=== PATIENT | male | born 1985 | race Caucasian/White ===

== ENCOUNTER → 2022-06-05 15:41 | Outpatient (BNVA) | payer MEDICAID, SELFPAY | PROVIDERS: PCP Internal Medicine; Visit Provider Nurse Practitioner Psychiatric/Mental Health | DX: Z51.81 Encounter for therapeutic drug level monitoring (principal); F11.20 Opioid dependence, uncomplicated | CPT/HCPCS: 80305; 99212 ==

== ENCOUNTER 2022-06-13 15:55 | Outpatient (REF) | payer MEDICAID, SELFPAY ==
[2022-06-13 17:05] LABS: Albumin Level 4.4 g/dL (3.5-5.0); Bilirubin Direct 0.2 mg/dL (0.0-0.5); Bilirubin Total 0.4 mg/dL (0.0-1.0); Total Protein 7.3 g/dL (6.5-8.0)
[2022-06-13 17:24] LABS: Alanine Aminotransferase 127 U/L (0-40); Alkaline Phosphatase 56 U/L (39-117); Aspartate Amino Transferase 61 U/L (5-37)
[2022-06-14 04:08] LABS: HBS Num1 1.16 mIU/mL (0-7.99); HBc Num1 0.17 S/CO (0.00-0.79); HBsAGNum1 0.15 S/CO (0.00-0.99); Hepatitis A Antibody IgM 0.15 Index (0-0.79); Hepatitis B Core Antibody Nonreactive (Nonreactive); Hepatitis B Surface Antigen Negative (Negative); ~HepC Num1 14.17 S/CO (0.00-0.79); ~Hepatitis A Antibody IgM Nonreactive (Nonreactive); ~Hepatitis B Surface Antibody NONREACTIVE (Nonreactive); ~Hepatitis C Antibody Reactive (Nonreactive)
== END 2022-06-13 15:56 | disposition home or self-care (01) ==
LOC: HO.LAB 15:55
PROVIDERS: PCP Internal Medicine; Visit Provider Nurse Practitioner Psychiatric/Mental Health
DX: F11.20 Opioid dependence, uncomplicated (principal); Z51.81 Encounter for therapeutic drug level monitoring; Z79.899 Other long term (current) drug therapy
CPT/HCPCS: 36415; 80076; 80305; 86704; 86706; 86709; 86803; 87340; 99212

== ENCOUNTER → 2022-06-20 16:13 | Outpatient (BNVA) | payer MEDICAID, SELFPAY | PROVIDERS: PCP Internal Medicine; Visit Provider Nurse Practitioner Psychiatric/Mental Health | DX: F11.20 Opioid dependence, uncomplicated (principal); Z51.81 Encounter for therapeutic drug level monitoring; Z79.899 Other long term (current) drug therapy | CPT/HCPCS: 80305; 99212 ==

== ENCOUNTER 2022-07-04 15:55 | Outpatient (REF) | payer MEDICAID, SELFPAY ==
[2022-07-04 16:26] LABS: MANUAL DIFF FLAG NO
[2022-07-04 16:47] LABS: Basophils Absolute Auto 0.1 X10*3/uL (0.0-0.2); Basophils Percent Auto 0.8 % (0-2); Eosinophils Absolute Auto 0.2 X10*3/uL (0.0-0.4); Hematocrit 45.5 % (42.0-52.0); Hemoglobin 15.4 g/dl (14.0-18.0); Imm Gran Abs Auto 0.03 X10*3/uL (0.00-0.03); Imm Gran Pct Auto 0.4 % (0.0-0.4); Lymphocytes Absolute Auto 2.1 X10*3/uL (1.2-4.9); Lymphocytes Percent Auto 26.5 % (20-40); Mean Corpuscular HGB Conc 33.8 g/dl (31.0-36.0); Mean Corpuscular Hemoglobin 30.9 pg (27.0-33.0); Mean Corpuscular Volume 91.4 fL (80.0-98.0); Mean Platelet Volume 9.6 fL (9.4-12.4); Monocytes Absolute Auto 0.6 X10*3/uL (0.1-1.2); Monocytes Percent Auto 8.1 % (2-11); Neutrophils Absolute Auto 4.9 x10*3/uL (2.0-8.3); Neutrophils Percent Auto 61.2 % (45-73); Platelet Count 170 X10*3/uL (160-400); Red Blood Count 4.98 X10*6/uL (4.60-5.80); Red Cell Distribution Width 13.5 % (11.0-16.0); White Blood Count 7.9 X10*3/uL (4.8-10.8)
[2022-07-04 18:00] LABS: Alanine Aminotransferase 89 U/L (0-40); Albumin Level 4.3 g/dL (3.5-5.0); Alkaline Phosphatase 50 U/L (39-117); Anion Gap 14 (12-20); Aspartate Amino Transferase 55 U/L (5-37); Bilirubin Direct 0.3 mg/dL (0.0-0.5); Bilirubin Total 0.5 mg/dL (0.0-1.0); Blood Urea Nitrogen 12 mg/dL (9-16); Calcium 9.2 mg/dL (8.4-10.2); Carbon Dioxide 25 mmol/L (22-29); Chloride 102 mmol/L (96-108); Estimated Glomerular Filt Rate > 60; Glucose Random 72 mg/dL (60-115); Potassium 4.1 mmol/L (3.3-5.1); Sodium 137 mmol/L (135-145); Total Protein 6.9 g/dL (6.5-8.0)
[2022-07-08 20:07] LABS: HCV Log PCR 7.02 Log IU/mL (NOT DETECTED)
== END 2022-07-04 15:56 | disposition home or self-care (01) ==
LOC: HO.LAB 15:55
PROVIDERS: PCP Internal Medicine; Visit Provider Nurse Practitioner Psychiatric/Mental Health
DX: F11.20 Opioid dependence, uncomplicated (principal); Z51.81 Encounter for therapeutic drug level monitoring; Z79.899 Other long term (current) drug therapy
CPT/HCPCS: 36415; 80048; 80076; 80305; 85025; 87522; 99212

== ENCOUNTER → 2022-07-31 15:47 | Outpatient (BNVA) | payer MEDICAID, SELFPAY | PROVIDERS: PCP Internal Medicine; Visit Provider Nurse Practitioner Psychiatric/Mental Health | DX: Z51.81 Encounter for therapeutic drug level monitoring (principal); F11.20 Opioid dependence, uncomplicated | CPT/HCPCS: 80305; 99212 ==

== ENCOUNTER → 2022-08-28 14:50 | Outpatient (BNVA) | payer MEDICAID, SELFPAY | PROVIDERS: PCP Internal Medicine; Visit Provider Nurse Practitioner Psychiatric/Mental Health | DX: F11.20 Opioid dependence, uncomplicated (principal) | CPT/HCPCS: 80305; 99212 ==

== ENCOUNTER → 2022-10-03 15:27 | Outpatient (BNVA) | payer MEDICAID, SELFPAY | PROVIDERS: PCP Internal Medicine; Visit Provider Nurse Practitioner Psychiatric/Mental Health | DX: F11.20 Opioid dependence, uncomplicated (principal) | CPT/HCPCS: 99212 ==

== ENCOUNTER → 2022-10-30 16:15 | Outpatient (BNVA) | payer MEDICAID, SELFPAY | PROVIDERS: PCP Internal Medicine; Visit Provider Nurse Practitioner Psychiatric/Mental Health | DX: F11.20 Opioid dependence, uncomplicated (principal) | CPT/HCPCS: 80305; 99212 ==

== ENCOUNTER → 2022-12-25 15:43 | Outpatient (BNVA) | payer OTHER, SELFPAY | PROVIDERS: PCP Internal Medicine; Visit Provider Nurse Practitioner Psychiatric/Mental Health | DX: F11.20 Opioid dependence, uncomplicated (principal); Z51.81 Encounter for therapeutic drug level monitoring; Z79.899 Other long term (current) drug therapy | CPT/HCPCS: 80305; 99212 ==

== ENCOUNTER → 2023-01-21 15:33 | Outpatient (BNVA) | payer OTHER, SELFPAY | PROVIDERS: PCP Internal Medicine; Visit Provider Nurse Practitioner Psychiatric/Mental Health | DX: Z51.81 Encounter for therapeutic drug level monitoring (principal); F11.20 Opioid dependence, uncomplicated | CPT/HCPCS: 80305; 96372; 99212 ==

== ENCOUNTER → 2023-02-18 15:19 | Outpatient (BNVA) | payer MEDICAID, SELFPAY | PROVIDERS: PCP Internal Medicine; Visit Provider Nurse Practitioner Psychiatric/Mental Health | DX: Z51.81 Encounter for therapeutic drug level monitoring (principal); F11.20 Opioid dependence, uncomplicated | CPT/HCPCS: 80305; 96372; 99212 ==

== ENCOUNTER 2023-04-17 16:13 | Outpatient (AMB) | payer MEDICAID, SELFPAY ==
--- NOTE | 2023-04-17 16:15 | A.OFFVIS_ITS ---
Intake Vital Signs 04/17/23 16:22 BP 108/70 Blood Pressure Location Lt radial Position Sitting Pulse 84 Pulse Source Pulse Oximeter Pulse Oximetry (%) 95 Oxygen Delivery Method Room Air Intake Visit Reasons: MAT Visit Intake Note: the patient presents for a mat visit Service Now Developer Required: No Allergies No Known Allergies Allergy (Verified 04/17/23 16:16) Do you need a note to return to daycare/school/sports/work: No HPI MAT Visit HPI Details Patient presents for BETY treatment follow up Currently taking Suboxone 8mg daily Had been out of care for some time--reports he did not have any withdrawal sx for some time after last injection, then had several extra suboxone at home Does not want to resume with injection at this time Review of Systems Const Reports as per HPI and Reports no additional complaints Physical Exam Vital Signs: Last Vital Signs Pulse 84 04/17/23 16:22 BP 108/70 04/17/23 16:22 Pulse Ox 95 04/17/23 16:22 Oxygen Delivery Method Room Air 04/17/23 16:22 Const General: cooperative, comfortable, no acute distress, well developed and alert Nutritional Appearance: well nourished Orientation/consciousness: patient oriented x3 Limitations: no limitations Neuro General: patient oriented x3 Psych Appearance: grossly normal Mental Status: mental status grossly normal Speech and movement: Normal speech and movement present Affect: normal affect Attitude: cooperative Thought process: Normal thought process present Thought content: Normal thought content present Insight: Good insight present (Psych) Judgement: Good judgement present (Psych) Results AMB 14 Panel Urine Drug Screen Urine Marijuana (THC) Positive Last Edit by Lili Bailey CMA on 04/17/23 16:24 Urine Cocaine Negative Last Edit by Lili Bailey CMA on 04/17/23 16:24 Urine Morphine Negative Last Edit by Lili Bailey CMA on 04/17/23 16:24 Urine Methamphetamine Negative Last Edit by Lili Bailey CMA on 04/17/23 16:24 Urine Amphetamine Positive Last Edit by Lili Bailey CMA on 04/17/23 16:2 4 Urine Benzodiazepine Negative Last Edit by Lili Bailey CMA on 04/17/23 16:24 Urine Barbiturates Negative Last Edit by Lili Bailey CMA on 04/17/23 16: 24 Urine Methadone Negative Last Edit by Lili Bailey CMA on 04/17/23 16:24 Urine Buprenorphine Positive Last Edit by Lili Bailey CMA on 04/17/23 16 :24 Urine Tricyclic Antidepressant Negative Last Edit by Lili Bailey CMA on 04/17/23 16:24 Urine MDMA Positive Last Edit by Lili Bailey CMA on 04/17/23 16:24 Urine Oxycodone Negative Last Edit by Lili Bailey CMA on 04/17/23 16:24 Urine Phencyclidine Negative Last Edit by Lili Bailey CMA on 04/17/23 16 :24 Urine Propoxyphene Negative Last Edit by Lili Bailey CMA on 04/17/23 16: 24 Results Reviewed Results Reviewed: Laboratory Last Values POC Urine Buprenorphine Positive 04/17/23 16:16 POC Urine Morphine Negative 04/17/23 16:16 POC Urine Oxycodone Negative 04/17/23 16:16 POC Urine Methadone Negative 04/17/23 16:16 POC Urine Propoxyphene Negative 04/17/23 16:16 POC Urine Barbiturates Negative 04/17/23 16:16 POC U Tricyclic Antidpr Negative 04/17/23 16:16 POC Urine PCP Negative 04/17/23 16:16 POC Ur Amphetamines Positive 04/17/23 16:16 POC Ur Methamphetamine Negative 04/17/23 16:16 POC Urine MDMA Positive 04/17/23 16:16 POC Ur Benzodiazepine Negative 04/17/23 16:16 POC Urine Cocaine Negative 04/17/23 16:16 POC Ur Marijuana (THC) Positive 04/17/23 16:16 Assessment & Plan Assessment & Plan (1) Opioid use disorder, severe, dependence: Code(s): F11.20 - Opioid dependence, uncomplicated Plan: * continue suboxone 8mg QD * follow up 8 weeks * encouraged to call office should he need to be seen sooner Orders: Orders AMB 14 Panel Urine Drug Screen 04/17/23 Z51.81 - Encounter for therapeutic drug level monitoring Medications: Changed From buprenorphine-naloxone 8-2 mg (Suboxone) 2 film sublingual DAILY 6 ea 0RF To buprenorphine-naloxone 8-2 mg (Suboxone) 1 film sublingual DAILY 30 ea 1RF Coding Level of Care Code Est Pt Level 3 (91532) Diagnoses Opioid use disorder, severe, dependence F11.20
[2023-04-17 16:22] VITALS: BP 108/70; PULSE 84; O2SAT 95
== END 2023-04-17 16:47 | disposition home or self-care (01) ==
LOC: HO.HCC 16:13
PROVIDERS: PCP Internal Medicine; Visit Provider Nurse Practitioner Psychiatric/Mental Health
DX: F11.20 Opioid dependence, uncomplicated (principal)
CPT/HCPCS: 99213

== ENCOUNTER → 2023-04-17 16:13 | Outpatient (BNVA) | payer MEDICAID, SELFPAY | PROVIDERS: PCP Internal Medicine; Visit Provider Nurse Practitioner Psychiatric/Mental Health | DX: F11.20 Opioid dependence, uncomplicated (principal) | CPT/HCPCS: 80305; 99213 ==

== ENCOUNTER 2023-06-12 14:30 | Outpatient (AMB) | payer MEDICAID, SELFPAY ==
--- NOTE | 2023-06-12 14:31 | MHC.OFFVIS ---
Intake Vital Signs 06/12/23 14:35 BP 110/78 Blood Pressure Location Lt radial Position Sitting Pulse 67 Pulse Source Pulse Oximeter Pulse Oximetry (%) 94 Oxygen Delivery Method Room Air Intake Visit Reasons: mat visit Intake Note: the patient presents for a mat visit Customer Experience Specialist Required: No Allergies No Known Allergies Allergy (Verified 06/12/23 14:36) Do you need a note to return to daycare/school/sports/work: No HPI mat visit HPI Details Pt presents for OUD treatment follow up Currently being prescribed Suboxone 8mg daily Denies any side effects related to medication Still working fulltime Review of Systems Const Reports as per HPI Physical Exam Vital Signs: Last Vital Signs Pulse 67 06/12/23 14:35 BP 110/78 06/12/23 14:35 Pulse Ox 94 06/12/23 14:35 Oxygen Delivery Method Room Air 06/12/23 14:35 Const General: cooperative, comfortable, no acute distress, well developed and alert Nutritional Appearance: well nourished Orientation/consciousness: patient oriented x3 Limitations: no limitations Neuro General: patient oriented x3 Psych Appearance: grossly normal Mental Status: mental status grossly normal Speech and movement: Normal speech and movement present Affect: normal affect Attitude: cooperative Thought process: Normal thought process present Thought content: Normal thought content present Insight: Good insight present (Psych) Judgement: Good judgement present (Psych) Assessment & Plan Assessment & Plan (1) Opioid use disorder, severe, dependence: Code(s): F11.20 - Opioid dependence, uncomplicated Plan: continue suboxone 8mg QD follow up 8 weeks encouraged to call office should he need to be seen sooner Medications: Refilled buprenorphine-naloxone 8-2 mg (Suboxone) 1 film sublingual DAILY 30 ea 1RF Coding Level of Care Code Est Pt Level 3 (94175) Diagnoses Opioid use disorder, severe, dependence F11.20
[2023-06-12 14:35] VITALS: BP 110/78; PULSE 67; O2SAT 94
== END 2023-06-12 14:53 | disposition home or self-care (01) ==
PROVIDERS: PCP Internal Medicine; Visit Provider Nurse Practitioner Psychiatric/Mental Health
DX: F11.20 Opioid dependence, uncomplicated (principal)
CPT/HCPCS: 99213

== ENCOUNTER → 2023-06-12 14:30 | Outpatient (BNVA) | payer MEDICAID, SELFPAY | PROVIDERS: PCP Internal Medicine; Visit Provider Nurse Practitioner Psychiatric/Mental Health | DX: F11.20 Opioid dependence, uncomplicated (principal) | CPT/HCPCS: 99212 ==

== ENCOUNTER 2023-08-07 14:31 | Outpatient (AMB) | payer MEDICAID, SELFPAY ==
--- NOTE | 2023-08-07 14:38 | A.OFFVIS_ITS ---
Intake Intake Visit Reasons: mat visit Allergies No Known Allergies Allergy (Verified 06/12/23 14:36) HPI mat visit HPI Details Patient presents for follow up Currently prescribed Suboxone 8mg QD Will be starting soon Working FT. Review of Systems Const Reports as per HPI and Reports no additional complaints Physical Exam Const General: cooperative, comfortable, no acute distress, well developed and alert Nutritional Appearance: well nourished Orientation/consciousness: patient oriented x3 Limitations: no limitations Neuro General: patient oriented x3 Psych Appearance: grossly normal Mental Status: mental status grossly normal Speech and movement: Normal speech and movement present Affect: normal affect Attitude: cooperative Thought process: Normal thought process present Thought content: Normal thought content present Insight: Good insight present (Psych) Judgement: Good judgement present (Psych) Assessment & Plan Assessment & Plan (1) Opioid use disorder, severe, dependence: Code(s): F11.20 - Opioid dependence, uncomplicated Plan: * continue suboxone 8mg QD * follow up 8 weeks * encouraged to call office should he need to be seen sooner Medications: Refilled buprenorphine-naloxone 8-2 mg (Suboxone) 1 film sublingual DAILY 30 ea 1RF Coding Level of Care Code Est Pt Level 3 (57580) Diagnoses Opioid use disorder, severe, dependence F11.20
== END 2023-08-07 16:20 | disposition home or self-care (01) ==
PROVIDERS: PCP Internal Medicine; Visit Provider Nurse Practitioner Psychiatric/Mental Health
DX: F11.20 Opioid dependence, uncomplicated (principal)
CPT/HCPCS: 99213

== ENCOUNTER → 2023-08-07 14:31 | Outpatient (BNVA) | payer MEDICAID, SELFPAY | PROVIDERS: PCP Internal Medicine; Visit Provider Nurse Practitioner Psychiatric/Mental Health | DX: F11.20 Opioid dependence, uncomplicated (principal) | CPT/HCPCS: 99212 ==

== ENCOUNTER 2023-10-09 14:19 | Outpatient (AMB) | payer MEDICAID, SELFPAY ==
--- NOTE | 2023-10-09 14:59 | A.OFFVISCC_ITS ---
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 [facility] Medical History (Updated 10/09/23 @ 15:04 by Amber Perez CNP) Opioid use disorder, severe, dependence Review of Systems Const Reports as per HPI Physical Exam Const General: cooperative, comfortable, no acute distress, well developed and alert Nutritional Appearance: well nourished Orientation/consciousness: patient oriented x3 Limitations: no limitations Neuro General: patient oriented x3 Psych Appearance: grossly normal Mental Status: mental status grossly normal Speech and movement: Normal speech and movement present Affect: normal affect Attitude: cooperative Thought process: Normal thought process present Thought content: Normal thought content present Insight: Good insight present (Psych) Judgement: Good judgement present (Psych) Assessment & Plan Assessment & Plan (1) Opioid use disorder, severe, in sustained remission: Code(s): F11.21 - Opioid dependence, in remission Plan: * continue suboxone at current dose * follow up 2 months * encouraged to call office should he need anything before then Medications: Refilled buprenorphine-naloxone 8-2 mg (Suboxone) 1 film sublingual DAILY 30 ea 1RF Coding Level of Care Code Est Pt Level 3 (17926) Diagnoses Opioid use disorder, severe, in sustained remission F11.21
== END 2023-10-09 14:54 | disposition home or self-care (01) ==
PROVIDERS: PCP Internal Medicine; Visit Provider Nurse Practitioner Psychiatric/Mental Health
DX: F11.21 Opioid dependence, in remission (principal)
CPT/HCPCS: 99213

== ENCOUNTER → 2023-10-09 14:19 | Outpatient (BNVA) | payer MEDICAID, SELFPAY | PROVIDERS: PCP Internal Medicine; Visit Provider Nurse Practitioner Psychiatric/Mental Health | DX: F11.20 Opioid dependence, uncomplicated (principal) | CPT/HCPCS: 99212 ==

== ENCOUNTER 2023-12-04 14:38 | Outpatient (AMB) | payer MEDICAID, SELFPAY ==
--- NOTE | 2023-12-04 14:39 | A.OFFVISCC_ITS ---
Intake Vital Signs 12/04/23 14:46 BP 116/74 Blood Pressure Location Lt radial Position Sitting Pulse 83 Pulse Source Pulse Oximeter Pulse Oximetry (%) 96 Oxygen Delivery Method Room Air Intake Visit Reasons: mat visit Intake Note: The patient presents for a mat visit Senior Environmental Technician Required: No Allergies No Known Allergies Allergy (Verified 12/04/23 14:39) Do you need a note to return to daycare/school/sports/work: No HPI mat visit HPI Details Patient presents for follow up Currently prescribed Suboxone 8mg QD No issues related to recovery Patient reporting that he is planning to move to [place] later this year He and his are visiting in January and plan to look for places to live Discussed continuation of treatment--patient expressed wanting to d/c suboxone. Discussed Brixadi as an option [facility] Medical History (Updated 12/04/23 @ 14:44 by Amber Perez CNP) Opioid use disorder, severe, dependence Review of Systems Const Reports as per HPI and Reports no additional complaints Physical Exam Vital Signs: Last Vital Signs Pulse 83 12/04/23 14:46 BP 116/74 12/04/23 14:46 Pulse Ox 96 12/04/23 14:46 Oxygen Delivery Method Room Air 12/04/23 14:46 Const General: cooperative, comfortable, no acute distress, well developed and alert Nutritional Appearance: well nourished Orientation/consciousness: patient oriented x3 Limitations: no limitations Neuro General: patient oriented x3 Psych Appearance: grossly normal Mental Status: mental status grossly normal Speech and movement: Normal speech and movement present Affect: normal affect Attitude: cooperative Thought process: Normal thought process present Thought content: Normal thought content present Insight: Good insight present (Psych) Judgement: Good judgement present (Psych) Assessment & Plan Assessment & Plan (1) Opioid use disorder, severe, in sustained remission: Code(s): F11.21 - Opioid dependence, in remission Plan: * continue suboxone at current dose * follow up 3 months * encouraged to call office should he need anything before then Orders: Orders Liver Panel 1 Month Z79.899 - Other [facility] (current) drug therapy Coding Level of Care Code Est Pt Level 3 (13778) Diagnoses Opioid use disorder, severe, in sustained remission F11.21
[2023-12-04 14:46] VITALS: BP 116/74; PULSE 83; O2SAT 96
== END 2023-12-04 15:14 | disposition home or self-care (01) ==
PROVIDERS: PCP Internal Medicine; Visit Provider Nurse Practitioner Psychiatric/Mental Health
DX: F11.21 Opioid dependence, in remission (principal)
CPT/HCPCS: 99213

== ENCOUNTER → 2023-12-04 14:38 | Outpatient (BNVA) | payer MEDICAID, SELFPAY | PROVIDERS: PCP Internal Medicine; Visit Provider Nurse Practitioner Psychiatric/Mental Health | DX: F11.21 Opioid dependence, in remission (principal) | CPT/HCPCS: 99212 ==

== ENCOUNTER 2024-02-25 14:07 | Outpatient (AMB) | payer MEDICAID, SELFPAY ==
--- NOTE | 2024-02-26 13:35 | MHC.AM.SUB ---
Intake Visit Reasons: mat visit Allergies No Known Allergies Allergy (Verified 12/04/23 14:39) HPI HPI mat visit: Details: Patient seen in follow up Currently prescribed Suboxone 8mg QD Denies any side effects Patient sharing that he will be moving to [place] by April Discussed transitioning care to provider in that area, he has not looked into this yet. Encouraged patient to do so soon so continuation of treatment is not an issue once he moves there Verbalized understanding. [facility] Medical History (Updated 12/04/23 @ 14:44 by Amber Perez CNP) Opioid use disorder, severe, dependence Review of Systems Const Reports as per HPI and Reports no additional complaints Physical Exam Const General: cooperative, comfortable, no acute distress, well developed and alert Nutritional Appearance: well nourished Orientation/consciousness: patient oriented x3 Limitations: no limitations Neuro General: patient oriented x3 Psych Appearance: grossly normal Mental Status: mental status grossly normal Speech and movement: Normal speech and movement present Affect: normal affect Attitude: cooperative Thought process: Normal thought process present Thought content: Normal thought content present Insight: Good insight present (Psych) Judgement: Good judgement present (Psych) Assessment & Plan Assessment & Plan (1) Opioid use disorder, severe, in sustained remission: Code(s): F11.21 - Opioid dependence, in remission Category: Medical Plan: continue suboxone at current dose refills due at start of March--will send then follow up 6 weeks
== END 2024-02-25 14:32 | disposition home or self-care (01) ==
PROVIDERS: PCP Internal Medicine; Visit Provider Nurse Practitioner Psychiatric/Mental Health
DX: F11.21 Opioid dependence, in remission (principal)
CPT/HCPCS: 99213

== ENCOUNTER → 2024-02-25 14:07 | Outpatient (BNVA) | payer MEDICAID, SELFPAY | PROVIDERS: PCP Internal Medicine; Visit Provider Nurse Practitioner Psychiatric/Mental Health | DX: F11.21 Opioid dependence, in remission (principal); Z79.899 Other long term (current) drug therapy | CPT/HCPCS: 99212 ==

== ENCOUNTER 2024-04-21 14:14 | Outpatient (AMB) | payer MEDICAID, SELFPAY ==
--- NOTE | 2024-04-21 14:21 | A.OFFVISCC_ITS ---
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 denies any issues with medication denies any issues related to recovery [facility] Medical History (Updated 12/04/23 @ 14:44 by Amber Perez CNP) Opioid use disorder, severe, dependence Review of Systems Const Reports as per HPI and Reports no additional complaints Physical Exam Const General: cooperative, healthy appearing and well groomed Nutritional Appearance: average body habitus Orientation/consciousness: patient oriented x3 Limitations: no limitations Neuro General: patient oriented x3 Psych Appearance: grossly normal Speech and movement: Normal speech and movement present Affect: normal affect Attitude: cooperative Thought process: Normal thought process present Thought content: Normal thought content present Insight: Good insight present (Psych) Judgement: Good judgement present (Psych) Assessment & Plan Assessment & Plan (1) Opioid use disorder, severe, in sustained remission: Code(s): F11.21 - Opioid dependence, in remission Category: Medical Plan: * continue suboxone at current dose * follow up in August * refill not yet due
== END 2024-04-21 14:37 | disposition home or self-care (01) ==
PROVIDERS: PCP Internal Medicine; Visit Provider Nurse Practitioner Psychiatric/Mental Health
DX: F11.21 Opioid dependence, in remission (principal)
CPT/HCPCS: 99213

== ENCOUNTER → 2024-04-21 14:14 | Outpatient (BNVA) | payer MEDICAID, SELFPAY | PROVIDERS: PCP Internal Medicine; Visit Provider Nurse Practitioner Psychiatric/Mental Health | DX: F11.20 Opioid dependence, uncomplicated (principal) | CPT/HCPCS: 99212 ==

== ENCOUNTER 2024-08-25 14:54 | Outpatient (AMB) | payer OTHER, SELFPAY ==
--- NOTE | 2024-08-25 15:00 | A.OFFVISCC_ITS ---
Intake Visit Reasons: mat visit Allergies No Known Allergies Allergy (Verified 12/04/23 14:39) HPI HPI mat visit: Details: Patient presents for follow up Still going [employer] Working in both spaces Not sure yet when he is moving there permanently Will be staying here until the Spring Positive outlook and attitude Tolerating current dose --no issues related to recovery Saw his PCP a couple weeks ago labs completed WNL--happy to hear that Hep C was successfully treated Working on cutting down on cigarettes Review of Systems Const Reports as per HPI and Reports no additional complaints Physical Exam Const General: cooperative, healthy appearing and well groomed Nutritional Appearance: average body habitus Orientation/consciousness: patient oriented x3 Limitations: no limitations Neuro General: patient oriented x3 Psych Appearance: grossly normal Speech and movement: Normal speech and movement present Affect: normal affect Attitude: cooperative Thought process: Normal thought process present Thought content: Normal thought content present Insight: Good insight present (Psych) Judgement: Good judgement present (Psych) Assessment & Plan Assessment & Plan (1) Opioid use disorder, severe, in sustained remission: Code(s): F11.21 - Opioid dependence, in remission Category: Medical Plan: * continue suboxone at current dose * follow up 3 months [facility] Medical History (Updated 12/04/23 @ 14:44 by Amber Perez CNP) Opioid use disorder, severe, dependence
== END 2024-08-25 15:12 | disposition home or self-care (01) ==
PROVIDERS: PCP Physician Assistant Surgical; Visit Provider Nurse Practitioner Psychiatric/Mental Health
DX: F11.21 Opioid dependence, in remission (principal)
CPT/HCPCS: 99213

== ENCOUNTER → 2024-08-25 14:54 | Outpatient (BNVA) | payer OTHER, SELFPAY | PROVIDERS: PCP Physician Assistant Surgical; Visit Provider Nurse Practitioner Psychiatric/Mental Health | DX: F11.21 Opioid dependence, in remission (principal) | CPT/HCPCS: 99212 ==

== ENCOUNTER 2024-11-24 09:33 | Outpatient (AMB) | payer OTHER, SELFPAY ==
--- NOTE | 2024-11-24 09:43 | MHC.AM.SUB ---
Intake Visit Reasons: MAT Office Allergies No Known Allergies Allergy (Verified 12/04/23 14:39) HPI HPI MAT Office: Details: Patient presents for follow up Currently prescribed Suboxone 8mg daily tolerating current dose no issues with sleep or appetite has decided not to relocate to [place]. Will be staying in this area Review of Systems Const Reports as per HPI and Reports no additional complaints Physical Exam Const General: cooperative, healthy appearing and well groomed Nutritional Appearance: average body habitus Orientation/consciousness: patient oriented x3 Limitations: no limitations Neuro General: patient oriented x3 Psych Appearance: grossly normal Speech and movement: Normal speech and movement present Affect: normal affect Attitude: cooperative Thought process: Normal thought process present Thought content: Normal thought content present Insight: Good insight present (Psych) Judgement: Good judgement present (Psych) [facility] Medical History (Updated 12/04/23 @ 14:44 by Amber Perez CNP) Opioid use disorder, severe, dependence Assessment & Plan Assessment & Plan (1) Opioid use disorder, severe, in sustained remission: Code(s): F11.21 - Opioid dependence, in remission Category: Medical Plan: continue suboxone at current dose follow up 3 months
== END 2024-11-24 10:28 | disposition home or self-care (01) ==
LOC: HO.HCC 09:33
PROVIDERS: PCP Physician Assistant Surgical; Visit Provider Nurse Practitioner Psychiatric/Mental Health
DX: F11.21 Opioid dependence, in remission (principal)
CPT/HCPCS: 99213

== ENCOUNTER → 2024-11-24 09:33 | Outpatient (BNVA) | payer OTHER, SELFPAY | PROVIDERS: PCP Physician Assistant Surgical; Visit Provider Nurse Practitioner Psychiatric/Mental Health | DX: F11.21 Opioid dependence, in remission (principal); Z51.81 Encounter for therapeutic drug level monitoring | CPT/HCPCS: 99212 ==

== ENCOUNTER 2025-03-09 15:42 | Outpatient (AMB) | payer OTHER, SELFPAY ==
--- NOTE | 2025-03-09 16:20 | MHC.AM.SUB ---
Vital Signs 03/09/25 16:36 BP 128/77 Blood Pressure Location Lt brachial Position Sitting Pulse 83 Pulse Source Pulse Oximeter Pulse Oximetry (%) 98 Oxygen Delivery Method Room Air Intake Visit Reasons: MAT Intake Allergies No Known Allergies Allergy (Verified 12/04/23 14:39) Medication List - Last Reconciled 03/09/25 by IGLESIA Nam buprenorphine-naloxone 8-2 mg (Suboxone) 1 film sublingual BID HPI Comments Details: The patient is a 39-year-old who presents for a three-month MAT visit. Reports no use of opiates or other substances. The patient is requesting an increase in the dose of buprenorphine-naloxone 8-2 mg from daily to twice a day. The patient reports being active in multiple sports and r/t is requesting the increase in the buprenorphine-naloxone dose. Review of Systems Const All systems reviewed & are unremarkable except as noted in HPI and below Physical Exam Vital Signs: Last Vital Signs Pulse 83 03/09/25 16:36 BP 128/77 03/09/25 16:36 Pulse Ox 98 03/09/25 16:36 Oxygen Delivery Method Room Air 03/09/25 16:36 Psych Appearance: grossly normal Mental Status: mental status grossly normal Speech and movement: Normal speech and movement present Affect: normal affect Attitude: cooperative Thought process: Normal thought process present Insight: Good insight present (Psych) Judgement: Good judgement present (Psych) [facility] Medical History Opioid use disorder, severe, dependence Assessment & Plan Assessment & Plan (1) Opioid use disorder, severe, in sustained remission: Code(s): F11.21 - Opioid dependence, in remission Category: Medical Plan: The plan of care is to start on the increased dose of sublingual buprenorphine-naloxone 8-2 mg, BID. Follow up in 3 months or sooner, if needed. Medications: Changed From buprenorphine-naloxone 8-2 mg (Suboxone) 1 film sublingual DAILY 30 ea 2RF To buprenorphine-naloxone 8-2 mg (Suboxone) 1 film sublingual BID 60 packets 2RF Patient Instructions: Start on the increased dose of sublingual buprenorphine-naloxone 8-2 mg, twice per day and follow up in 3 months or sooner, if needed.
[2025-03-09 16:36] VITALS: BP 128/77; PULSE 83; O2SAT 98
== END 2025-03-09 16:11 | disposition home or self-care (01) ==
PROVIDERS: PCP Physician Assistant Surgical; Visit Provider Clinical Nurse Specialist Psychiatric/Mental Health
DX: F11.21 Opioid dependence, in remission (principal)
CPT/HCPCS: 99213

== ENCOUNTER → 2025-03-09 15:42 | Outpatient (BNVA) | payer OTHER, SELFPAY | PROVIDERS: PCP Physician Assistant Surgical; Visit Provider Clinical Nurse Specialist Psychiatric/Mental Health | DX: F11.21 Opioid dependence, in remission (principal) | CPT/HCPCS: 99212 ==

== ENCOUNTER 2025-06-07 11:09 | Outpatient (AMB) | payer OTHER, SELFPAY ==
--- NOTE | 2025-06-07 11:13 | A.OFFVIS_ITS ---
Vital Signs 06/07/25 11:14 Height 6 ft Weight 195 lb BMI 26.4 BP 118/70 Pulse 74 Pulse Oximetry (%) 96 Intake Visit Reasons: MAT Allergies No Known Allergies Allergy (Verified 06/07/25 11:15) HPI Comments Details: A 40-year-old male presents for a follow-up visit r/t BETY in sustained remission with buprenorphine-naloxone 8-2 mg BID. Denies use of opiates, alcohol, and other substances. Reports currently going through a divorce process and keeps busy by working and playing sports. The patient reports in the past was on Sublocade and is interested in restarting long-acting injectable looking to start on Brixadi. [facility] Medical History Opioid use disorder, severe, dependence Review of Systems Const All systems reviewed & are unremarkable except as noted in HPI and below Physical Exam Vital Signs: Last Vital Signs Pulse 74 06/07/25 11:14 BP 118/70 06/07/25 11:14 Pulse Ox 96 06/07/25 11:14 BMI result Body Mass Index 26.4 Const General: cooperative Assessment & Plan Assessment & Plan (1) Opioid use disorder, severe, in sustained remission: Code(s): F11.21 - Opioid dependence, in remission Category: Medical Plan The plan of care is to continue on buprenorphine-naloxone 8-2 mg BID and Brixadi will be ordered pending insurance approval. Follow-up in 3 months or sooner if needed. Medications: Refilled buprenorphine-naloxone 8-2 mg (Suboxone) 1 film sublingual BID 60 packets 2RF Patient Instructions: - Continue with buprenorphine-naloxone as prescribed. - Brixadi will be ordered pending insurance approval. - Follow up in 3 months or sooner if needed. - Call with questions, concerns, or to report side effects/new onset of symptoms to [facility]. - The patient verbalized understanding and agreed with plan of care. Coding Level of Care Code Est Pt Level 3 (99503) Diagnoses Opioid use disorder, severe, in sustained remission F11.21
[2025-06-07 11:14] VITALS: BP 118/70; PULSE 74; O2SAT 96; BMI 26.4
== END 2025-06-07 11:31 | disposition home or self-care (01) ==
LOC: HO.HCC 11:09
PROVIDERS: PCP Physician Assistant Surgical; Visit Provider Clinical Nurse Specialist Psychiatric/Mental Health
DX: F11.21 Opioid dependence, in remission (principal)
CPT/HCPCS: 99213

== ENCOUNTER → 2025-06-07 11:09 | Outpatient (BNVA) | payer OTHER, SELFPAY | PROVIDERS: PCP Physician Assistant Surgical; Visit Provider Clinical Nurse Specialist Psychiatric/Mental Health | DX: F11.21 Opioid dependence, in remission (principal) | CPT/HCPCS: 99212 ==

== ENCOUNTER → 2025-08-01 13:05 | Outpatient (BNVA) | payer MEDICAID, SELFPAY | PROVIDERS: PCP Physician Assistant Surgical | DX: F11.21 Opioid dependence, in remission (principal) | CPT/HCPCS: 96372; J0578 ==

== ENCOUNTER 2025-08-01 15:58 | Outpatient (AMB) | payer MEDICAID, SELFPAY ==
[2025-08-01 16:10] VITALS: BP 122/66; PULSE 76; O2SAT 97
--- NOTE | 2025-08-01 16:10 | MHC.OFFVIS ---
Vital Signs 08/01/25 16:10 BP 122/66 Pulse 76 Pulse Oximetry (%) 97 Intake Visit Reasons: Injection Allergies No Known Allergies Allergy (Verified 08/01/25 16:11) [facility] Medical History Opioid use disorder, severe, dependence Physical Exam Vital Signs: Last Vital Signs Pulse 76 08/01/25 16:10 BP 122/66 08/01/25 16:10 Pulse Ox 97 08/01/25 16:10 Office Meds buprenorphine 96 mg/0.27 mL solution,exten.rel.subcutaneous syringe Performing Provider: IGLESIA Nam Performing Location: [facility] Administered by: Sandra Oneil RN on 08/01/25 16:28 Dose Route Admin Location Dispensed Lot Number Expiration Date [employer] 96 mg subcut KURTIS 0.27 mL [id number] 08/07/26 13947-513-52 [employer] Total Dispensed Waste 0.27 mL 0 % Comments: Pt here for first Brixadi 96 mg injection. Pt denies any concern with previous injections of Sublocade in the past and tolerated injection well. Educated on signs and symptoms of infection and encouraged to call [facility] with any related questions or concerns, pt verbalized understanding. Follow-up scheduled in 4 weeks for next injection. Assessment & Plan Assessment & Plan Orders: Orders AMB Buprenorphine Injection - Patient Supplied Today F11.21 - Opioid dependence, in remission Coding
--- NOTE | 2025-08-01 16:51 | AM.OFFVISNUR ---
Vital Signs 08/01/25 16:10 BP 122/66 Pulse 76 Pulse Oximetry (%) 97 Intake Visit Reasons: Injection Allergies No Known Allergies Allergy (Verified 08/01/25 16:11) Nursing Note Danny presents for first Brixadi injection. Danny is alert, oriented, cooperative with care and presents with appropriate affect. Danny reports receiving Sublocade injections in the past. Education provided, contract signed and emergency ID wallet card filled out, explained and provided, 5 day SL bridge called to pharmacy to negate any negative symptoms until dose reaches therapeutic range if needed. Danny just returned home from his camp in [place], looking forward to the holiday with girlfriend and her college aged children. Follow-up in 4 weeks for the next injection. Office Meds buprenorphine 96 mg/0.27 mL solution,exten.rel.subcutaneous syringe Performing Provider: ANDRES NamC Performing Location: [facility] Administered by: Sandra Oneil RN on 08/01/25 16:28 Dose Route Admin Location Dispensed Lot Number Expiration Date [facility] Net [employer]her 96 mg subcut KURTIS 0.27 mL [id number] 08/07/26 55500-694-04 [employer]. Total Dispensed Waste 0.27 mL 0 % Comments: Pt here for first Brixadi 96 mg injection. Pt denies any concern with previous injections of Sublocade in the past and tolerated injection well. Educated on signs and symptoms of infection and encouraged to call [facility] with any related questions or concerns, pt verbalized understanding. Follow-up scheduled in 4 weeks for next injection. Assessment & Plan Assessment & Plan Orders: Orders AMB Buprenorphine Injection - Patient Supplied Today F11.21 - Opioid dependence, in remission Coding
== END 2025-08-01 16:24 | disposition home or self-care (01) ==
PROVIDERS: PCP Physician Assistant Surgical
DX: F11.21 Opioid dependence, in remission (principal)